=== PATIENT | female | born 1970 | race African-American/Black ===

== ENCOUNTER 2017-12-08 13:49 | Day surgery (SDC) | payer OTHER ==
[2017-12-07 15:55] VITALS: BMI 24.1
--- NOTE | 2017-12-08 15:01 | HP ---
Admitting History and Physical - Admission Chief Complaint: Abnormal History of Present Illness: 47 yo diagnosed with Missed @ 8 weeks gestation, is pre op for suction D&C. History Source: Patient Limitations to Obtaining History: No Limitations - Past Medical History ...LMP: 09/21/17 ...: Yes ...: 3 ...Para: 2 - Past Surgical History Past Surgical History: Yes: None - Smoking History Smoking history: Current some day smoker Have you smoked in the past 12 months: Yes Aproximately how many cigarettes per day: 3 If you are a former smoker, when did you quit?: 3wks - Alcohol/Substance Use Hx Alcohol Use: Yes (occasion) Home Medications - Allergies Allergies/Adverse Reactions: Allergies Allergy/AdvReac Type Severity Reaction Status Date / Time No Known Allergies Allergy Verified 12/07/17 15:46 - Home Medications Home Medications: Ambulatory Orders Furosemide [Lasix] 20 mg PO DAILY 12/07/17 Review of Systems - Review of Systems Constitutional: reports: No Symptoms Eyes: reports: No Symptoms HENT: reports: No Symptoms Neck: reports: No Symptoms Cardiovascular: reports: No Symptoms Respiratory: reports: No Symptoms Gastrointestinal: reports: No Symptoms Genitourinary: reports: Other (Vaginal spotting) Breasts: reports: No Symptoms Reported Musculoskeletal: reports: No Symptoms Integumentary: reports: No Symptoms Neurological: reports: No Symptoms Endocrine: reports: No Symptoms Hematology/Lymphatic: reports: No Symptoms Psychiatric: reports: No Symptoms Pain Intensity: 0 Physical Examination Vital Signs: Vital Signs Temperature 98.4 F 12/08/17 14:33 Pulse Rate 79 12/08/17 14:33 Respiratory Rate 16 12/08/17 14:33 Blood Pressure 118/69 12/08/17 14:33 O2 Sat by Pulse Oximetry (%) 98 12/08/17 14:33 Constitutional: Yes: Well Nourished Eyes: Yes: Conjunctiva Clear HENT: Yes: Atraumatic Neck: Yes: Supple Cardiovascular: Yes: Regular Rate and Rhythm Respiratory: Yes: Regular Gastrointestinal: Yes: Normal Bowel Sounds Breast(s): Yes: WNL Musculoskeletal: Yes: WNL Extremities: Yes: WNL Neurological: Yes: Alert, Oriented ...Motor Strength: WNL Psychiatric: Yes: Alert, Oriented Problem List - Problems (1) Missed Code(s): O02.1 - MISSED Assessment/Plan Missed Pre op for suction D&C Consent signed Anesthesia to see patient
[2017-12-08] MEDS ORDERED: PROPOFOL 20 ML ONE (15:11)
[2017-12-08] MEDS ORDERED: MIDAZOLAM HCL 2 MG/2 ML SINGLE DOSE VIAL ONE (15:11)
[2017-12-08] MEDS ORDERED: LIDOCAINE HCL/PF 2% SDV 5ML VIAL ONE (15:11)
[2017-12-08] MEDS ORDERED: KETOROLAC TROMETHAMINE 30 MG/1 ML VIAL ONE (15:20)
--- NOTE | 2017-12-08 15:28 | OP ---
Operative Note - Note: Operative Date: 12/08/17 Pre-Operative Diagnosis: Missed Operation: Suction D&C Findings: Product of conception Post-Operative Diagnosis: Same as Pre-op Surgeon: Karol Snider Anesthesia: General Specimens Removed: Product of conception Estimated Blood Loss (mls): 10 Operative Report Dictated: Yes
[2017-12-08] MEDS ORDERED: oxyCODONE HCL 5 MG TABLET PO PRN (15:33)
[2017-12-08] MEDS ORDERED: ONDANSETRON 4 MG/2 ML VIAL IVPUSH PRN (15:33)
[2017-12-08] MEDS ORDERED: LACTATED RINGERS SOLUTION 1,000 ML IV SCH (15:45)
--- NOTE | 2017-12-08 16:57 | OP ---
DATE OF OPERATION: 12/08/2017 PREOPERATIVE DIAGNOSIS: Missed . POSTOPERATIVE DIAGNOSIS: Missed . PROCEDURE: Suction dilation and curettage. SURGEON: Karol Snider M.D. ANESTHESIA: General. COMPLICATIONS: None. ESTIMATED BLOOD LOSS: 10 mL. PROCEDURE: Patient was taken to the operating room where general anesthesia was administered. Patient was then placed in lithotomy position. She was then prepped and draped in proper sterile fashion. A weighted speculum was placed in the vagina. The anterior lip of the cervix was grasped with a single-toothed tenaculum. The cervical os was then sequentially dilated with Le dilators. Then a 10-mm suction curet was then gently introduced into the uterine cavity and the suction device was activated, and the curet rotated to clear the uterus of all products of conception. A sharp curettage was then performed. Then the curet was then reintroduced to clear the uterus of all remaining products of conception. Then the instruments were removed. The patient was taken out of lithotomy position. She was taken to PACU in stable condition. Pathology: Products of conception. Benjamin SRINIVASAN/[id number]
[2017-12-08 18:10] VITALS: BP 128/80; PULSE 82; TEMP 97.8
--- NOTE | 2017-12-12 12:27 | PATH ---
Surgical Pathology Report Patient Name: SAHIL FERNANDEZ Med. Rec. #: [id number] /Age/Gender: 1970 (Age: 47) / F Account: [id number] Location: [facility] [place] [facility] Taken: 12/08/2017 Received: 12/09/2017 Reported: 12/12/2017 Physicians: Karol Snider M.D. Specimen(s) Received PRODUCTS OF CONCEPTION Clinical History Missed Final Diagnosis PRODUCTS OF CONCEPTION, SUCTION DILATION AND CURETTAGE: IMMATURE CHORIONIC VILLI AND DECIDUA AND CONSISTENT WITH PRODUCTS OF CONCEPTION. Electronically Signed Dulce Mcdonald M.D. Gross Description Received in formalin labeled "products of conception," is a 7.5 x 7.0 x 1.2 cm aggregate of jefferson red soft tissue fragments. Villous tissue is identified. No somatic tissue is identified. A client services representative portion is submitted in one cassette. /12/09/2017 saudi12/09/2017
== END 2017-12-08 18:11 | disposition home or self-care (01) ==
LOC: JASU-SURG 13:49
PROVIDERS: ATTEND Obstetrics & Gynecology
PROC: 10D17ZZ Extraction of Products of Conception, Retained, Via Natural or Artificial Opening (ICD-10-PCS; principal; 2017-12-08 15:00)
DX: O02.1 Missed abortion (principal)
CPT/HCPCS: 86850; 86900; 86901; 88305-TC; 94760

== ENCOUNTER 2020-11-27 15:24 | Emergency (ER) | payer BC, OTHER ==
[2020-11-27 15:41] VITALS: BP 131/88; PULSE 80; TEMP 98.3; BMI 21.6
[2020-11-27] MEDS ORDERED: NAPROXEN 500 MG TABLET PO ONE (17:09)
[2020-11-27] MEDS ORDERED: NAPROXEN 500 MG TABLET ONE (17:12)
[2020-11-27] MEDS ORDERED: PRESCRIPTION PAD 1 EACH EACH NR ONE (18:02)
== END 2020-11-27 17:20 | disposition home or self-care (01) ==
LOC: JERFT 15:24
DX: S89.92XA Unspecified injury of left lower leg, initial encounter (principal)
CPT/HCPCS: 73562-TC-LT-FY; 99284-25